=== PATIENT | female | born 1980 | race Caucasian/White ===

== ENCOUNTER 2016-10-14 21:11 | Emergency (ER) | payer OTHER ==
[~2016-10-14] VITALS: Ht 154.9 cm; Wt 55.3 kg
[2016-10-14 21:48] VITALS: BP 138/82
== END 2016-10-14 21:48 | disposition home or self-care (01) ==
LOC: ED 21:11
DX: Z30.012 Encounter for prescription of emergency contraception (principal)

== ENCOUNTER 2016-10-30 20:21 | Emergency (ER) | payer OTHER ==
[2016-10-30 22:16] VITALS: BP 105/69
== END 2016-10-30 22:16 | disposition home or self-care (01) ==
LOC: ED 20:21
DX: S46.911A Strain of unspecified muscle, fascia and tendon at shoulder and upper arm level, right arm, initial encounter (principal); X58.XXXA Exposure to other specified factors, initial encounter; Y93.89 Activity, other specified; Y99.8 Other external cause status; Y92.89 Other specified places as the place of occurrence of the external cause
CPT/HCPCS: J1885

== ENCOUNTER 2018-04-11 13:01 | Emergency (ER) | payer OTHER ==
[~2018-04-11] VITALS: Ht 154.9 cm; Wt 54.9 kg
[2018-04-11 13:11] VITALS: Ht 154.9 cm; Wt 54.9 kg
[2018-04-11 14:53] VITALS: BP 108/71
== END 2018-04-11 14:53 | disposition home or self-care (01) ==
LOC: ED 13:01
DX: S29.012A Strain of muscle and tendon of back wall of thorax, initial encounter (principal); R51 Headache; M54.2 Cervicalgia; V43.92XA Unspecified car occupant injured in collision with other type car in traffic accident, initial encounter; Y93.89 Activity, other specified; Y92.488 Other paved roadways as the place of occurrence of the external cause; Y99.8 Other external cause status